=== PATIENT | female | born 1980 | race Caucasian/White ===

== ENCOUNTER 2016-11-07 12:13 | Emergency (ER) | payer OTHER ==
[2016-11-07 12:40] VITALS: BP 134/73
--- NOTE | 2016-11-07 12:57 | UC ---
Lower Extremity/Ankle HPI - HPI Summary HPI Summary: while playing softball a week ago, she had sudden posterior pain in the ankle. she has had bruising since. she continues to have pain. - History of Current Complaint Chief Complaint: UCLowerExtremity Stated Complaint: RIGHT ANKLE INJURY Time Seen by Provider: 11/07/16 12:41 Hx Obtained From: Patient Hx Last Menstrual Period: 10/13/16 Onset/Duration: Sudden Onset, Lasting Days Severity Initially: Severe Severity Currently: Severe Aggravating Factor(s): Standing, Ambulation Alleviating Factor(s): Elevation Able to Bear Weight: Yes - Allergies/Home Medications Allergies/Adverse Reactions: Allergies Allergy/AdvReac Type Severity Reaction Status Date / Time Sulfa Antibiotics Allergy Swelling Verified 11/07/16 12:41 bee sting Allergy Difficulty Uncoded 11/07/16 12:41 Breathing Home Medications: Home Medications Acetaminophen [Non-Aspirin Extra Strengt] 1,000 mg PO Q24H PRN 11/07/16 [ History Confirmed 11/07/16] PMH/Surg Hx/FS Hx/Imm Hx Previously Healthy: No - obesity. - Surgical History Surgical History: Yes Surgery Procedure, Year, and Place: tonsils at age 9 yrs - Family History Known Family History: Positive: Other - no related ankle history in the family. - Social History Occupation: Employed Full-time Alcohol Use: Occasionally Substance Use Type: None Smoking Status (MU): Never Smoked Tobacco Review of Systems Musculoskeletal: Arthralgia All Other Systems Reviewed And Are Negative: Yes Physical Exam Triage Information Reviewed: Yes Appearance: Well-Appearing, No Pain Distress, Well-Nourished Vital Signs: Initial Vital Signs Temp 97.5 F 11/07/16 12:34 Pulse 100 11/07/16 12:34 Resp 20 11/07/16 12:34 BP 134/73 11/07/16 12:34 Vital Signs Reviewed: Yes Eye Exam: Normal ENT Exam: Normal Neck exam: Normal Neck: Positive: Supple, Nontender, No Lymphadenopathy Respiratory Exam: Normal Cardiovascular Exam: Normal Abdominal Exam: Normal Musculoskeletal Exam: Other - right ankle diffuse swelling and inner medial ankle bruising. she is most tender along the posterior achilles. thompsens test is positive. Unable to push up on toes and flex ankle. Neurological Exam: Normal Psychological Exam: Normal Skin Exam: Normal Lower Extremity Course/Dx - Course Course Of Treatment: Miguel's positive. She has bruising and posterior achilles tenderness. I suspect partial tear of the achilles. Elvis agrees to see Dr. irving tomorrow. Elvis will use crutches. on xray, there is no jarred injury and achilles appear intact but further eval is still necessary. - Differential Dx/Diagnosis Differential Diagnosis/HQI/PQRI: Arthritis, Compartment Syndrome, Contusion, Dislocation, Infection, Puncture Wound, Sciatica, Sprain, Strain Provider Diagnoses: ankle injury. possible achilles tear. Discharge - Discharge Plan Condition: Good Disposition: HOME Patient Education Materials: Achilles Tendon Rupture (ED) Forms: *Work Release Referrals: Lai Irving MD [Medical Doctor] - 1 Day
--- NOTE | 2016-11-07 13:20 | RAD ---
INDICATION: Right ankle injury. TECHNIQUE: 3 views of the right ankle were obtained. FINDINGS: There is diffuse soft tissue swelling present. The bones are normal alignment. No fracture is seen. Joint spaces appear maintained. IMPRESSION: SOFT TISSUE SWELLING, NO FRACTURE IS SEEN.
== END 2016-11-07 13:30 | disposition home or self-care (01) ==
LOC: UCCORT 12:13
DX: S99.911A Unspecified injury of right ankle, initial encounter (principal); X58.XXXA Exposure to other specified factors, initial encounter; Y93.64 Activity, baseball; Y92.9 Unspecified place or not applicable; Z88.2 Allergy status to sulfonamides; Z91.030 Bee allergy status; E66.9 Obesity, unspecified
CPT/HCPCS: 99203; G0463

== ENCOUNTER 2016-11-19 13:55 | Day surgery (SDC) | payer OTHER ==
[~2016-11-19 13:55] MED LIST: Buffered Lidocaine 0.9% SYRIN* 5 ML/SYR SYRINGE INTRADERM ONE; Buffered Lidocaine 0.9% SYRIN* 5 ML/SYR SYRINGE ONE; Dexamethasone IV* 4 MG/ML 1 ML (4 MG) IV SLOW PU ONE; Dexamethasone IV* 4 MG/ML 1 ML (4 MG) ONE; Famotidine IV* 10 MG/ML 2 ML (20 mg) IV ONE; Famotidine IV* 10 MG/ML 2 ML (20 mg) ONE; ceFAZolin 2 GM PREMIX (*) 50 ML IVPB ONE
[2016-11-19] MEDS ORDERED: Ketorolac INJ* 30 MG/ML 1 ML VIAL ONE (14:05)
[2016-11-19] MEDS ORDERED: Ondansetron INJ* 2 MG/ML VIAL ONE (14:05)
[2016-11-19] MEDS ORDERED: Lidocaine 2% PF * 5 ML VIAL ONE (14:05)
[2016-11-19] MEDS ORDERED: Propofol* 10 MG/ML 20 ML BTL IV PUSH ONE (14:05)
[2016-11-19] MEDS ORDERED: KETAMINE HCL* 50 MG/ML 10 ML VIAL ONE (14:06)
[2016-11-19] MEDS ORDERED: Midazolam* 1 MG/ML 5 ML VIAL (5 MG) ONE (14:06)
[2016-11-19] MEDS ORDERED: fentaNYL* 50 MCG/ML 2 ML VIAL (100 MCG VIAL) ONE ×3 (14:06→17:49)
[2016-11-19] MEDS ORDERED: Cisatracurium* 2 MG/ML MDV 5 ML ONE (14:50)
[2016-11-19] MEDS ORDERED: Bupivacaine 0.5% SDV PF* 30 ML VIAL ONE (15:04)
[2016-11-19] MEDS ORDERED: Neostigmine Methylsulfate* 2 MG/2 ML SYRINGE ONE (16:28)
[2016-11-19] MEDS ORDERED: Glycopyrrolate IV* 0.2 MG/ML 1 ML VIAL ONE (16:28)
[2016-11-19] MEDS ORDERED: oxyCODONE/Acetamin 5/325 MG* TAB PO PRN (17:10)
[2016-11-19] MEDS ORDERED: Ondansetron INJ* 2 MG/ML VIAL IV PRN (17:10)
[2016-11-19] MEDS ORDERED: fentaNYL* 50 MCG/ML 2 ML VIAL (100 MCG VIAL) IV PRN (17:10)
[2016-11-19 19:06] VITALS: BP 118/75
--- NOTE | 2016-11-20 04:57 | OP ---
DATE OF OPERATION: 11/19/16 - [facility] DATE OF : 82 SURGEON: Juan Mccallum MD CLIENT CARE SPECIALIST: Tiffanie Ogden PA-C ANESTHESIOLOGIST: Esvin Ashton MD ANESTHESIA: General PRE-OP DIAGNOSIS: Right tendon with Achilles rupture. POST-OP DIAGNOSIS: Right tendon with Achilles rupture. OPERATIVE PROCEDURE: Right Achilles repair. DESCRIPTION OF PROCEDURE: The patient was taken to the operating room where prone positioning was used. We made an 8-cm longitudinal incision along the medial distal portion of the Achilles. Full-thickness flap was raised medial and lateral to allow visualization of the tear. We wove double stranded #1 Biosyn above and below the rupture so that the knots could be tied remote to the rupture simultaneously to give good apposition of the tendon without tension. We then irrigated soft tissues closing the subcutaneous tissue with 2- 0 Vicryl and gianfranco for the skin and a compression dressing plaster splint applied. [id number] #: [id number] MTDD
== END 2016-11-19 19:09 | disposition home or self-care (01) ==
LOC: OR 13:55
PROVIDERS: ATTEND Orthopaedic Surgery
DX: S86.011A Strain of right Achilles tendon, initial encounter (principal); X50.0XXA Overexertion from strenuous movement or load, initial encounter; Y93.64 Activity, baseball; Y92.320 Baseball field as the place of occurrence of the external cause; F41.8 Other specified anxiety disorders
CPT/HCPCS: 81025; J0690; J1100; J1885; J2250; J2405; J2704; J3010